=== PATIENT | female | born 1980 | race Caucasian/White ===

== ENCOUNTER → 2017-06-02 | Outpatient (CLI) | payer BC ==
[~2017-06-02] VITALS: Ht 167.6 cm; Wt 77.4 kg
[~2017-06-02] MED LIST: Motrin PO; PRENATAL TABLE1 EAC3 PO; Percocet 5/325,Endoc PO; SYNTHROID175 MCG PO
[2017-06-02 19:18] VITALS: BP 117/69
== END | disposition home or self-care (01) ==
LOC: IVINF 19:13
DX: Z31.82 Encounter for Rh incompatibility status (principal); Z3A.28 28 weeks gestation of pregnancy; Z67.41 Type O blood, Rh negative
CPT/HCPCS: 96372

== ENCOUNTER 2017-08-24 02:35 | Inpatient (IN) | payer BC ==
[~2017-08-24] VITALS: Ht 167.6 cm; Wt 83.9 kg
[2017-08-24] VITALS (24 sets, daily range): BP systolic 87–146; BP diastolic 50–95
[2017-08-24 03:18] LABS: BASOPHIL (%) 0.4 % (0-1); EOSINOPHIL (%) 1.4 % (0-5); EOSINOPHIL COUNT 0.2 K/uL (0-0.3); HEMATOCRIT 36.1 % (36.0-46.0); HEMOGLOBIN 12.1 G/DL (11.9-15.5); IMMATURE GRANULOCYTE (%) 0.7 % (0.0-0.7); LYMPHOCYTE (%) 20.1 % (15-42); LYMPHOCYTE COUNT 2.2 K/uL (1.0-2.8); MCH 28.5 PG (29.0-34.0); MCHC 33.5 G/DL (30.0-36.0); MCV 84.9 FL (83-99); MONOCYTE (%) 8.2 % (3-12); MONOCYTE COUNT 0.9 K/uL (0-0.8); NEUTROPHIL (%) 69.2 % (45-76); NEUTROPHIL COUNT 7.5 K/uL (1.8-6.4); PLATELET COUNT 143 K/uL (156-360); RBC DIS.WIDTH-CV 13.1 % (11.8-14.6); RBC DIS.WIDTH-SD 40.2 % (39-53); RED BLOOD COUNT 4.25 M/uL (3.80-5.20); WHITE BLOOD COUNT 10.8 K/uL (4.1-10.2)
[2017-08-24] MEDS ORDERED: IBUPROFEN800 MG PO (11:49)
[2017-08-25 07:44] VITALS: BP 127/76
[2017-08-25 15:17] VITALS: BP 128/70
[2017-08-25 23:10] VITALS: BP 117/63
[2017-08-26 07:08] VITALS: BP 134/78
== END 2017-08-26 13:15 | disposition home or self-care (01) | DRG 775 ==
LOC: LDRP-OP 02:35 → 2WEST 02:36 → LDRP-OP 09-22 14:22
PROVIDERS: Nurse Practitioner
PROC: 10E0XZZ Delivery of Products of Conception, External Approach (ICD-10-PCS; principal; 2017-08-24)
PROC: 00HU33Z Insertion of Infusion Device into Spinal Canal, Percutaneous Approach (ICD-10-PCS; principal; 2017-08-24)
PROC: 3E0R3BZ Introduction of Anesthetic Agent into Spinal Canal, Percutaneous Approach (ICD-10-PCS; 2017-08-24)
DX: O48.0 Post-term pregnancy (principal); O62.2 Other uterine inertia; O99.344 Other mental disorders complicating childbirth; F32.9 Major depressive disorder, single episode, unspecified; O36.0930 Maternal care for other rhesus isoimmunization, third trimester, not applicable or unspecified; O99.284 Endocrine, nutritional and metabolic diseases complicating childbirth; E03.9 Hypothyroidism, unspecified; Z37.0 Single live birth; Z3A.40 40 weeks gestation of pregnancy
CPT/HCPCS: 83030; 85025; 86850; 86870; 86900; 86901; C1755; J2790; J7120